=== PATIENT | male | born 1965 | race Caucasian/White ===

== ENCOUNTER 2018-03-28 08:09 | Day surgery (SDC) | payer OTHER ==
--- NOTE | 2018-03-28 07:44 | PDHPUP ---
History & Physical Update H&P update statement: This history and physical update is based on an assessment of the patient which was completed after admission or registration (within 24 hours), but prior to the surgery/procedure. H&P update: H&P reviewed & patient examined, no change in patient's condition since H&P completed
[~2018-03-28 08:09] MED LIST: VANCOMYCIN HCL/NORMAL SALINE 250 ML IV ONE; VANCOMYCIN PHARMACY TO DOSE MISC ONE
[2018-03-28] MEDS ORDERED: LR 1,000 ML IV ONE (09:03)
--- NOTE | 2018-03-28 09:19 | PDANEPAE ---
ANE Past Medical History - Cardiovascular History Hx Hypertension: No Hx Arrhythmias: No Hx Chest Pain: No Hx Coronary Artery / Peripheral Vascular Disease: No Hx CHF / Valvular Disease: No Hx Palpitations: No - Pulmonary History Hx COPD: No Hx Asthma/Reactive Airway Disease: No Hx Recent Upper Respiratory Infection: No Hx Oxygen in Use at Home: No Hx Sleep Apnea: No Sleep Apnea Screening Result - Last Documented: Negative - Neurologic History Hx Cerebrovascular Accident: No Hx Seizures: No Hx Dementia: No - Endocrine History Hx Diabetes: No - Renal History Hx Renal Disorders: No - Liver History Hx Hepatic Disorders: No - Neurological & Psychiatric Hx Hx Neurological and Psychiatric Disorders: No - Cancer History Hx Cancer: No - Congenital Disorder History Hx Congenital Disorders: No - GI History Hx Gastrointestinal Disorders: No Gastrointestinal History Comment: HX OF COLON POLYPS - Other Health History Other Health History: PSORIASIS. DDD. OSTEOARTHRITIS - Chronic Pain History Chronic Pain: Yes (LT ING HERNIA) - Surgical History Prior Surgeries: HEMORRHOID BANDING. RT UPPER EYE LID BLEPH. LT 5TH FINGER ORIF WITH POST REMVL ANE Review of Systems Review of Systems: - Exercise capacity METS (RN): 5 METS ANE Patient History - Allergies Allergies/Adverse Reactions: Penicillins Allergy (Verified 11/28/10 00:59) Rash - Home Medications Home Medications: NO HOME MEDICATIONS 11/28/10 [Last Taken Unknown] - NPO status NPO Since - Liquids (Date): 03/27/18 NPO Since - Liquids (Time): 23:00 NPO Since - Solids (Date): 03/27/18 NPO Since - Solids (Time): 23:00 - Smoking Hx Smoking Status: Former smoker ANE Labs/Vital Signs - Vital Signs Blood Pressure: 97/71 Heart Rate: 51 Respiratory Rate: 16 O2 Sat (%): 97 Height: 182.88 cm Weight: 71.668 kg ANE Physical Exam - Airway Neck exam: FROM Mallampati Score: Class 1 Mouth exam: normal dental/mouth exam - Pulmonary Pulmonary: no respiratory distress - Cardiovascular Cardiovascular: regular rate and rhythym - ASA Status ASA Status: I ANE Anesthesia Plan Anesthesia Plan: general endotracheal anesthesia
[2018-03-28] MEDS ORDERED: BUPIVACAINE/EPI 0.5% 30 ML SDV ONE (09:24)
[2018-03-28] MEDS ORDERED: DEXAMETHASONE 4 MG/ML VIAL ONE (09:28)
[2018-03-28] MEDS ORDERED: PROPOFOL 200 MG/20 ML VIAL ONE ×2 (09:28)
[2018-03-28] MEDS ORDERED: ONDANSETRON 4 MG/2 ML VIAL ONE (09:28)
[2018-03-28] MEDS ORDERED: ROCURONIUM 100 MG/10 ML VIAL ONE (09:28)
[2018-03-28] MEDS ORDERED: fentaNYL 100 MCG/2 ML INJ ONE ×3 (09:28→11:26)
[2018-03-28] MEDS ORDERED: LIDOCAINE 2% 2 ML INJ ONE (09:29)
[2018-03-28] MEDS ORDERED: ATROPINE SULFATE 1 MG/ML VIAL ONE (10:15)
[2018-03-28] MEDS ORDERED: GLYCOPYRROLATE 0.2 MG/1 ML VIAL ONE ×2 (10:15)
[2018-03-28] MEDS ORDERED: NALOXONE HCL 0.4 MG/ML INJ IVP PRN (10:56)
[2018-03-28] MEDS ORDERED: HYDROCODONE/APAP 5/325 TAB PO PRN (10:56)
[2018-03-28] MEDS ORDERED: fentaNYL 100 MCG/2 ML INJ IVP PRN (10:56)
--- NOTE | 2018-03-28 10:56 | POSTANESTH ---
Post Anesthetic Evaluation Cardiovascular Status: Normal, Stable Respiratory Status: Normal, Stable Level of Consciousness/Mental Status: Can Participate in Eval Pain Control: Adequate, Prn Tx Ordered Nausea/Vomiting Control: Adequate, Prn Tx Ordered Complications Possibly Related to Anesthesia: None Noted
--- NOTE | 2018-03-28 11:24 | POSTOPPROG ---
Post Op Note Date of Operation: 03/28/18 Surgeon: Manuel Dwyer Special Agent [employer]: OLIVIA Weir Anesthesiologist: Jarvis Anesthesia: GET(General Endotracheal) Pre-op Diagnosis: LIH Post-op Diagnosis: LIH Procedure: Robotic assisted LIH c mesh Findings: moderate indirect defect Inf/Abcess present in the surg proc area at time of surgery?: No EBL: Minimal
[2018-03-28] MEDS ORDERED: HYDROCODONE/APAP 5/325 TAB ONE (12:01)
--- NOTE | 2018-03-28 12:07 | GOP ---
DATE OF OPERATION: 03/28/2018 SURGEON: Manuel Dwyer MD BACK TENDER CYLINDER: Joann Logan CFA ANESTHESIA: General endotracheal. ANESTHESIOLOGIST: Tim Conley MD PREOPERATIVE DIAGNOSIS: Left inguinal hernia. POSTOPERATIVE DIAGNOSIS: Left inguinal hernia. PROCEDURE PERFORMED: Robotic-assisted laparoscopic left inguinal hernia repair with mesh. FINDINGS: Moderate-sized indirect defect noted on the left, successfully reduced and repaired with B michelle 3D Light large-size mesh. SPECIMENS: None. ESTIMATED BLOOD LOSS: 5 cc. DESCRIPTION OF PROCEDURE: The patient was greeted in the preoperative suite. Once again, risks, capri efits, and alternatives were discussed. Consent was signed. He was then brought back to the operati ve suite and placed on the OR table in the supine position. After all anesthesia machines, including sequential compression devices, were on and functioning, the [employer] time-out was performed. After a successful induction of general anesthesia, the patient's abdomen was prepped and draped in the typical sterile fashion. I entered the abdomen via a supraumbilical cutdown through w hich the Veress needle was passed. I achieved pneumoperitoneum to 15 mmHg, which was well tolerated b y the patient. Once successfully in the abdomen, I inserted three 8 mm trocars, 1 in the supraumbili yris location and 2 in the right and left upper quadrants. Both these were under direct visualization . Once successfully in the abdomen, I inspected the right side. There was no indirect or direct her darek identified. I turned my attention towards the left where a moderate-sized indirect defect was id entified. The patient was placed in gentle Trendelenburg position and a robot was docked. Once succ essfully docked, I made a peritoneal defect just lateral to the ASIS. I carried this medial to the p ubic tubercle. I dissected this down to Cl's ligament medially. In the extent of the dissection laterally, I carried the dissection down. I successfully skeletonized the cord structures and reduc ed the hernia sac back to the visceral sac. Once the cavity had been appropriately dissected out, I inspected the direct and femoral spaces and noted no significant defects. My mesh was then brought i n. It was successfully tacked to Cl's ligament as well as on either side of the inferior epigast ray vessels. It was allowed to lay flat with no appropriate kinks, with sufficient overlap. My atte ntion was then turned towards closing the peritoneal defect, which was done with a running V-Loc sutu re. [place] were then removed. I desufflated. Local anesthesia was infiltrated into the port sites. The skin was closed with Monocryl over which Dermabond was placed. The patient was then extubated in the operative suite and taken to the PACU in satisfactory condition. DRAINS: None. COUNTS: All counts were correct x2. /[id number]/MODL
[2018-03-28 13:20] VITALS: BP 107/69
== END 2018-03-28 13:21 | disposition home or self-care (01) ==
LOC: FSGY 08:09 → EEVIPCON 09:30 → FSGY 13:21
PROVIDERS: ATTEND Surgery
DX: K40.90 Unilateral inguinal hernia, without obstruction or gangrene, not specified as recurrent (principal)
CPT/HCPCS: C1781; J0461; J1100; J2405; J2704; J3010; J3370